=== PATIENT | male | born 1990 | race Caucasian/White ===

== ENCOUNTER 2017-09-20 20:22 | Emergency (ER) | payer SELFPAY ==
--- NOTE | 2017-09-20 20:50 | EDPHY ---
H & P Time Seen by Provider: 09/20/17 20:42 HPI/ROS: CHIEF COMPLAINT: Anxiety HISTORY OF PRESENT ILLNESS: Patient is a 27-year-old male who presents emergency department with feeling anxious. The patient has a history of anxiety. The patient reports that he drinks heavily. He had 3 shots earlier today. He also uses cocaine regularly. He used cocaine earlier today. He feels jittery. He feels general anxiety. He denies any chest pain. No shortness of breath. No nausea or vomiting. He denies denies hallucinations. REVIEW OF SYSTEMS: My complete review of systems is negative except as mentioned in the HPI. Past Medical/Surgical History: Anxiety Past surgical history: Noncontributory Social history: The patient drinks alcohol. Uses cocaine. Smoking Status: Heavy smoker Physical Exam: Vitals noted. 36.7, 141/98, 112, 18, 98% on room air GENERAL: Anxious appearing, in no acute distress, alert. HEENT: Eyes normal to inspection, normal pharynx, no signs of dehydration. NECK: No thyromegaly, no lymphadenopathy, supple. RESPIRATORY: Clear to auscultation bilaterally, no rales, rhonchi or wheezing. CVS: Tachycardia with regular rhythm, no rubs, murmurs, or gallops. ABDOMEN: Soft, nontender, nondistended, no organomegaly. BACK: Normal to inspection, no CVA tenderness. SKIN: Normal color, no rash, warm, dry. No pallor. EXTREMITIES: No pedal edema, no calf tenderness, no Homans sign or cords, no joint swelling. NEURO/PSYCH: Alert and oriented, normal mood and affect, normal motor sensory exam. Constitutional: Initial Vital Signs Temperature (C) 36.7 C 09/20/17 20:30 Heart Rate 112 H 09/20/17 20:30 Respiratory Rate 18 09/20/17 20:30 Blood Pressure 141/98 H 09/20/17 20:30 O2 Sat (%) 98 09/20/17 20:30 O2 Delivery Mode Room Air Allergies/Adverse Reactions: No Known Allergies Allergy (Unverified 09/20/17 20:30) Home Medications: Medication Instructions Recorded NK [No Known Home Meds] 09/20/17 Medical Decision Making ED Course/Re-evaluation: In the emergency department I discussed possible etiologies with the patient. I answered all his questions. Patient given Ativan 1 mg orally. Patient was given warnings prior to leaving. He will return with worsening symptoms. I do not feel the patient needs laboratory studies or EKG at this time. Patient is tachycardic. However he has no hallucinations. He drank recently. He also recently used cocaine. Differential Diagnosis: My differential includes but is not limited to alcohol withdrawal, cocaine use, alcohol abuse, dehydration, thyroid disease Departure - Departure Disposition: Home, Routine, Self-Care Clinical Impression: Anxiety, Alcohol abuse, Cocaine abuse Condition: Good Instructions: Abuse of Alcohol (ED), Anxiety (ED) Additional Instructions: Return with worsened symptoms or any other concerns. Referrals: [facility],. [Clinic] - 5-7 days, call for appt.
[2017-09-20] MEDS ORDERED: LORazepam 1 MG TAB PO ONE (20:51)
[2017-09-20 21:35] VITALS: BP 118/80
== END 2017-09-20 21:39 | disposition home or self-care (01) ==
DX: F41.9 Anxiety disorder, unspecified (principal); F10.129 Alcohol abuse with intoxication, unspecified; F14.10 Cocaine abuse, uncomplicated; F17.200 Nicotine dependence, unspecified, uncomplicated